=== PATIENT | female | born 1995 | race Two or more races ===

== ENCOUNTER 2022-11-12 14:20 | Observation (INO) | payer MEDICAID ==
[2022-11-12] MEDS ORDERED: PREN1TAB71 OR (15:30)
[2022-11-12] MEDS ORDERED: PREN1TAB71 PO (16:00)
[2022-11-12] MEDS ORDERED: METF-370 PO (16:00)
== END 2022-11-12 16:00 | disposition home or self-care (01) ==
LOC: LDRP 14:20 → UNDOADMOB 14:20 → LDRP 14:36 → UNDODISOB 16:00
PROVIDERS: ADMIT Obstetrics & Gynecology; ATTEND Obstetrics & Gynecology
DX: O24.419 Gestational diabetes mellitus in pregnancy, unspecified control (principal); Z3A.35 35 weeks gestation of pregnancy
CPT/HCPCS: 59025; 76818; 81002; 82948; 82962; 94760; G0378

== ENCOUNTER 2022-11-16 14:02 | Observation (INO) | payer MEDICAID ==
[~2022-11-16 14:02] MED LIST: METF-370 PO; PREN1TAB71 PO
== END 2022-11-16 15:36 | disposition home or self-care (01) ==
LOC: LDRP 14:02 → UNDOADMOB 14:02 → LDRP 14:22 → UNDODISOB 15:36
PROVIDERS: ADMIT Obstetrics & Gynecology; ATTEND Obstetrics & Gynecology
DX: O24.419 Gestational diabetes mellitus in pregnancy, unspecified control (principal); Z3A.36 36 weeks gestation of pregnancy
CPT/HCPCS: 59025; 76818; 81002; 82948; 82962; G0378

== ENCOUNTER 2022-11-19 14:49 | Observation (INO) | payer MEDICAID | END 2022-11-19 17:03 | disposition home or self-care (01) | LOC: LDRP 14:49 → UNDOADMOB 14:49 → LDRP 15:14 → UNDODISOB 17:03 | PROVIDERS: ADMIT Obstetrics & Gynecology; ATTEND Obstetrics & Gynecology | DX: O24.419 Gestational diabetes mellitus in pregnancy, unspecified control (principal); Z3A.36 36 weeks gestation of pregnancy | CPT/HCPCS: 59025; 76818; 81002; 82948; 82962; 94760; G0378 ==

== ENCOUNTER 2022-11-23 14:45 | Observation (INO) | payer MEDICAID ==
[~2022-11-23] VITALS: Ht 160 cm; Wt 69.4 kg
== END 2022-11-23 16:00 | disposition home or self-care (01) ==
LOC: LDRP 14:45
PROVIDERS: ADMIT Obstetrics & Gynecology; ATTEND Obstetrics & Gynecology
DX: O24.419 Gestational diabetes mellitus in pregnancy, unspecified control (principal); Z3A.37 37 weeks gestation of pregnancy
CPT/HCPCS: 59025; 76818; 81002; 82948; 94760; G0378

== ENCOUNTER 2022-11-26 14:41 | Observation (INO) | payer MEDICAID | END 2022-11-26 17:30 | disposition home or self-care (01) | LOC: LDRP 14:41 | PROVIDERS: ADMIT Obstetrics & Gynecology; ATTEND Obstetrics & Gynecology | DX: O24.419 Gestational diabetes mellitus in pregnancy, unspecified control (principal); Z3A.37 37 weeks gestation of pregnancy | CPT/HCPCS: 59025; 76818; 81002; 82948; 82962; 94760; G0378 ==

== ENCOUNTER 2022-11-30 16:40 | Observation (INO) | payer MEDICAID | END 2022-11-30 19:29 | disposition home or self-care (01) | LOC: LDRP 16:40 | PROVIDERS: ADMIT Obstetrics & Gynecology; ATTEND Obstetrics & Gynecology | DX: O24.419 Gestational diabetes mellitus in pregnancy, unspecified control (principal); Z3A.38 38 weeks gestation of pregnancy | CPT/HCPCS: 59025; 76818; 81002; 82948; 82962; 94760; G0378 ==

== ENCOUNTER 2022-12-07 17:14 | Observation (INO) | payer MEDICAID | END 2022-12-07 19:04 | disposition home or self-care (01) | LOC: LDRP 17:14 | PROVIDERS: ADMIT Obstetrics & Gynecology; ATTEND Obstetrics & Gynecology | DX: O24.415 Gestational diabetes mellitus in pregnancy, controlled by oral hypoglycemic drugs (principal); Z3A.39 39 weeks gestation of pregnancy; Z79.84 Long term (current) use of oral hypoglycemic drugs | CPT/HCPCS: 59025; 76818; 81002; 82948; 82962; 94760; G0378 ==

== ENCOUNTER 2022-12-10 17:27 | Observation (INO) | payer MEDICAID | END 2022-12-10 19:23 | disposition home or self-care (01) | LOC: LDRP 17:27 | PROVIDERS: ADMIT Obstetrics & Gynecology; ATTEND Obstetrics & Gynecology | DX: O24.419 Gestational diabetes mellitus in pregnancy, unspecified control (principal); Z3A.39 39 weeks gestation of pregnancy | CPT/HCPCS: 59025; 76818; 81002; 82948; 82962; 94760; G0378 ==

== ENCOUNTER 2022-12-14 17:37 | Observation (INO) | payer MEDICAID | END 2022-12-14 19:08 | disposition home or self-care (01) | LOC: LDRP 17:37 | PROVIDERS: ADMIT Obstetrics & Gynecology; ATTEND Obstetrics & Gynecology | DX: O48.0 Post-term pregnancy (principal); O24.419 Gestational diabetes mellitus in pregnancy, unspecified control; Z3A.40 40 weeks gestation of pregnancy | CPT/HCPCS: 59025; 76818; 81002; 82962; 94760; G0378 ==